=== PATIENT | female | born 1945 | race Caucasian/White ===

== ENCOUNTER 2018-10-01 10:27 | Inpatient (IN) | payer OTHER ==
[~2018-10-01] VITALS: Ht 149.9 cm; Wt 75.6 kg
[2018-10-01 10:33] VITALS: BP 179/80
[2018-10-01] MEDS ORDERED: ZOCOR20 MG PO (10:39)
[2018-10-01 10:59] LABS: ABSOLUTE BASOPHILS 0.1 thou/uL (0.0-0.2); ABSOLUTE MONOCYTES 1.4 thou/uL (0.0-1.2); ABSOLUTE NEUTROPHILS 12.1 thou/uL (1.6-8.1); BASOPHILS 0.4 %; EOSINOPHILS 0.1 %; HEMATOCRIT 44.9 % (37.0-47.0); HEMOGLOBIN 15.1 gm/dL (12.0-15.0); LYMPHOCYTES 12.9 %; MCH 31.5 pg (26.0-34.0); MCHC 33.7 g/dL (28.0-37.0); MCV 93.5 fL (80.0-100.0); MONOCYTES 8.7 %; MPV 10.4 fl. (7.2-11.1); NUCLEATED RBCS 0 /100WBC; PLATELET COUNT* 275 thou/uL (150-400); POLYS 77.9 %; RDW-CV 12.5 % (10.5-14.5); WBC 15.5 thou/uL (4.0-11.0)
[2018-10-01 11:15] LABS: ALBUMIN 3.3 g/dL (3.4-5.0); ALKALINE PHOSPHATASE 56 U/L (46-116); ANION GAP 10 mmol/L (7-16); BUN 15 mg/dL (7-18); CALCIUM 9.1 mg/dL (8.5-10.1); CHLORIDE 100 mmol/L (98-107); CO2 26 mmol/L (21-32); CREATININE 1.7 mg/dL (0.6-1.3); GLUCOSE 151 mg/dL (70-99); LIPASE 175 U/L (73-393); POTASSIUM 4.3 mmol/L (3.5-5.1); SGOT 14 U/L (15-37); SGPT 26 U/L (30-65); SODIUM 136 mmol/L (136-145); TOTAL BILIRUBIN 0.8 mg/dL (<0.1-1.0); TOTAL PROTEIN 7.6 g/dL (6.4-8.2); TROPONIN-I LEVEL <0.06 ng/mL (<0.06)
[2018-10-01 13:11] LABS: URINE BLOOD 3+ (Negative); URINE CLARITY CLEAR; URINE COLOR DARK YELLOW; URINE GLUCOSE-RANDOM NEGATIVE (Negative); URINE KETONES TRACE (Negative); URINE LEUKOCYTES-REFLEX TRACE (Negative); URINE NITRITE-REFLEX NEGATIVE (Negative); URINE PROTEIN 2+ (Negative); URINE SPECIFIC GRAVITY >= 1.030 (1.005-1.030)
[2018-10-01 13:13] LABS: ICTOTEST (BILI CONFIRMATORY) Negative (Negative); URINE BILIRUBIN 2+ (Negative)
[2018-10-01 13:19] LABS: BACTERIA-REFLEX 1-9 Few /HPF (None Seen); CASTS None Seen /LPF (None Seen); MUCUS 4-6 Moderate strn/LPF (None Seen); SQUAMOUS 0-3 Few /LPF (0-3); URINE RBC 3-10 Few /HPF (0-2); URINE WBC-REFLEX 6-15 Few /HPF (0-5)
[2018-10-01 13:20] LABS: CRYSTALS None Seen /LPF (None Seen)
[2018-10-01 14:45] VITALS: BP 186/59
[2018-10-01 14:48] VITALS: BP 128/76
[2018-10-01 17:00] VITALS: BP 155/42
[2018-10-01 20:00] VITALS: BP 172/53
[2018-10-02] VITALS: BP 160/52
--- NOTE | 2018-10-02 03:32 | NUR ---
RECIEVED REPORT AND ASSUMED CARE AT 1900. 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 DISTOLIC BP ELEVATED, OTHER THAN THAT VITAL SIGNS STABLE. PT IS UP ADLIB. PT HAS PAIN IN LOWER BACK AND ABD AND PRN PAIN MEDS GIVEN ORDERED. ASSESSMENT COMPLETED AND DISCUSSED PLAN OF CARE, PT UNDERSTANDS. BED LOCKED AND CALL LIGHT WITHIN REACH. FALL PRECAUTIONS IN PLACE. HOURLY ROUNDING DONE AND ALL NEEDS MET. NURSING WILL CONTINUE TO MONITOR.
[2018-10-02 04:00] VITALS: BP 173/63
[2018-10-02 05:00] LABS: ABSOLUTE BASOPHILS 0.1 thou/uL (0.0-0.2); ABSOLUTE EOSINOPHILS 0.1 thou/uL (0.0-0.7); ABSOLUTE LYMPHOCYTES 2.3 thou/uL (0.8-5.3); ABSOLUTE MONOCYTES 0.8 thou/uL (0.0-1.2); BASOPHILS 0.7 %; EOSINOPHILS 1.7 %; HEMATOCRIT 35.8 % (37.0-47.0); LYMPHOCYTES 27.3 %; MCH 32.2 pg (26.0-34.0); MCV 94.8 fL (80.0-100.0); MONOCYTES 10.2 %; MPV 10.3 fl. (7.2-11.1); NUCLEATED RBCS 0 /100WBC; PLATELET COUNT* 221 thou/uL (150-400); POLYS 60.1 %; RBC 3.77 mil/uL (4.20-5.00); RDW-CV 12.6 % (10.5-14.5); WBC 8.3 thou/uL (4.0-11.0)
[2018-10-02 05:03] LABS: CALCIUM 8.3 mg/dL (8.5-10.1); CREATININE 1.1 mg/dL (0.6-1.3); MAGNESIUM 1.9 mg/dL (1.8-2.4); PHOSPHORUS* 2.8 mg/dL (2.5-4.9)
[2018-10-02 05:25] LABS: HEMOGLOBIN 12.2 gm/dL (12.0-15.0)
[2018-10-02 07:44] VITALS: BP 152/54
[2018-10-02 12:00] VITALS: BP 181/70
[2018-10-02 16:00] VITALS: BP 147/63
--- NOTE | 2018-10-02 17:43 | EKG ---
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
--- NOTE | 2018-10-02 18:37 | NUR ---
PT TRANSITIONED TO MED/SURG STATUS THIS SHIFT. PT TOLERATING RA AND BEING UP AD KILLIAN AT THIS TIME WITH PAIN WELL CONTROLLED ON PAIN MEDICATIONS. PT TOLERATING DIET THSI SHIFT. WILL CONTINUE TO MONITOR AND ASSESS
[2018-10-02 20:30] VITALS: BP 155/51
[2018-10-03 04:00] VITALS: BP 178/44
[2018-10-03 04:36] LABS: ABSOLUTE BASOPHILS 0.1 thou/uL (0.0-0.2); ABSOLUTE EOSINOPHILS 0.2 thou/uL (0.0-0.7); ABSOLUTE LYMPHOCYTES 2.7 thou/uL (0.8-5.3); ABSOLUTE MONOCYTES 0.8 thou/uL (0.0-1.2); ABSOLUTE NEUTROPHILS 4.4 thou/uL (1.6-8.1); BASOPHILS 1.3 %; EOSINOPHILS 2.4 %; HEMATOCRIT 36.5 % (37.0-47.0); HEMOGLOBIN 12.5 gm/dL (12.0-15.0); LYMPHOCYTES 32.5 %; MCH 32.1 pg (26.0-34.0); MCHC 34.1 g/dL (28.0-37.0); MONOCYTES 10.3 %; MPV 10.2 fl. (7.2-11.1); NUCLEATED RBCS 0 /100WBC; PLATELET COUNT* 246 thou/uL (150-400); POLYS 53.5 %; RBC 3.88 mil/uL (4.20-5.00); RDW-CV 12.7 % (10.5-14.5); WBC 8.2 thou/uL (4.0-11.0)
[2018-10-03 04:51] LABS: CALCIUM 8.7 mg/dL (8.5-10.1); POTASSIUM 3.7 mmol/L (3.5-5.1)
--- NOTE | 2018-10-03 05:10 | NUR ---
PT CARE ASSUMED AT 1930. SAT MAINTAINED IN RA. CALL LIGHT WITHIN REACH AND BED IN LOW POSITION. ALERT AND ORIENTED X4. DENIES PAIN AND SOB. HOURLY ROUNDING DONE FOR PT SAFETY.
[2018-10-03 08:00] VITALS: BP 187/64
[2018-10-03 10:00] VITALS: BP 150/49
--- NOTE | 2018-10-03 10:21 | NUR ---
PT A/O. MED SURG STATUS. BP ELEVATED THIS AM-MEDICATED PER EMAR. VITALS OTHERWISE STABLE ON ROOM AIR. DENIES CP, SOA. LOOKING FORWARD TO POSSIBLE DC LATER TODAY. EDUCATED ON SAFETY AND PLAN OF CARE. PLEASE SEE ASSESSMENT FOR ADDITIONAL INFORMATION. WILL CONTINUE TO MONITOR
--- NOTE | 2018-10-03 12:15 | NUR ---
MET WITH PT TO DISCUSS HOME SITUATION/DC PLANNING. PT LIVES ALONE. IS INDEPENDENT AND ACTIVE. SHE USES NO EQUIPMENT, DOENS'T DRIVE BUT STATES FRIENDS ASSIST WITH TRANSPORTATION. PT DENIES DC NEEDS AND HOPES TO GO HOME SOON.
[2018-10-03 13:00] VITALS: BP 146/54
[2018-10-03 16:23] VITALS: BP 139/44
[2018-10-03 20:10] VITALS: BP 155/48
--- NOTE | 2018-10-04 05:02 | NUR ---
PT CARE ASSUMED AT 1930. SAT MAINTAINED RA. ALERT AND ORIENTED X4. CALL LIGHT WITHIN REACH AND BED IN LOW POSITION. DENIES PAIN AND SOB. HOURLY ROUNDING DONE FOR PT SAFTEY.
[2018-10-04 07:50] VITALS: BP 176/64
[2018-10-04] MEDS ORDERED: PRINIVIL20 MG PO (11:20)
[2018-10-04] MEDS ORDERED: KEFLEX500 M1 PO (11:20)
[2018-10-04] MEDS ORDERED: NORVASC10 MG PO (11:20)
[2018-10-04 11:30] VITALS: BP 151/42
[2018-10-04] MEDS ORDERED: TYLENOL325 MG PO (11:52)
[2018-10-04 11:53] VITALS: BP 176/64
--- NOTE | 2018-10-04 12:56 | NUR ---
PT GIVEN DISCHARGE INFORMATION, CARE NOTES, AND PRESCRIPTIONS. IV REMOVED. PT BELONGINGS GATHERED. PT LEFT VIA WHEELCHAIR WITH TRANSPORTERS TO HOME. FALL RISK PRECAUTIONS IN PLACE. HOURLY ROUNDING COMPLETED.
[2018-10-04 13:10] VITALS: BP 176/64
== END 2018-10-04 13:11 | disposition home or self-care (01) | DRG 871 ==
LOC: M.ERS 10:27 → M.2W 13:32 → M.TBA-ER 13:32 → M.2W 14:49
PROVIDERS: Physician Assistant; ADMIT Family Medicine
DX: A41.9 Sepsis, unspecified organism (principal); N17.0 Acute kidney failure with tubular necrosis; N12 Tubulo-interstitial nephritis, not specified as acute or chronic; F17.210 Nicotine dependence, cigarettes, uncomplicated; I12.9 Hypertensive chronic kidney disease with stage 1 through stage 4 chronic kidney disease, or unspecified chronic kidney disease; N18.9 Chronic kidney disease, unspecified; I25.10 Atherosclerotic heart disease of native coronary artery without angina pectoris; E78.5 Hyperlipidemia, unspecified; Z90.710 Acquired absence of both cervix and uterus; I25.2 Old myocardial infarction; Z90.49 Acquired absence of other specified parts of digestive tract; Z82.49 Family history of ischemic heart disease and other diseases of the circulatory system; Z79.82 Long term (current) use of aspirin; Z79.899 Other long term (current) drug therapy

== ENCOUNTER 2018-12-19 15:29 | Emergency (ER) | payer OTHER ==
[~2018-12-19] VITALS: Ht 149.9 cm; Wt 74.8 kg
[~2018-12-19 15:29] MED LIST: KEFLEX500 M1 PO; NORVASC10 MG PO; PRINIVIL20 MG PO; TYLENOL325 MG PO; ZOCOR20 MG PO
[2018-12-19] MEDS ORDERED: VITAMIN D-32000 UNIT PO (15:41)
[2018-12-19] MEDS ORDERED: FISH OIL 1,001000 M2 PO (15:41)
[2018-12-19] MEDS ORDERED: ASPIR 8181 MG PO (15:41)
[2018-12-19 16:44] LABS: ABSOLUTE BASOPHILS 0.1 thou/uL (0.0-0.2); ABSOLUTE EOSINOPHILS 0.2 thou/uL (0.0-0.7); ABSOLUTE LYMPHOCYTES 2.9 thou/uL (0.8-5.3); ABSOLUTE MONOCYTES 0.8 thou/uL (0.0-1.2); BASOPHILS 1.3 %; EOSINOPHILS 1.8 %; HEMATOCRIT 43.7 % (37.0-47.0); HEMOGLOBIN 15.1 gm/dL (12.0-15.0); LYMPHOCYTES 28.8 %; MCH 31.7 pg (26.0-34.0); MCHC 34.5 g/dL (28.0-37.0); MCV 91.8 fL (80.0-100.0); MONOCYTES 8.4 %; MPV 8.4 fl. (7.2-11.1); NUCLEATED RBCS 0 /100WBC; PLATELET COUNT* 431 thou/uL (150-400); POLYS 59.7 %; RBC 4.76 mil/uL (4.20-5.00); RDW-CV 12.5 % (10.5-14.5); WBC 10.1 thou/uL (4.0-11.0)
[2018-12-19 16:48] LABS: ANION GAP 9 mmol/L (7-16); BUN 13 mg/dL (7-18); CALCIUM 9.7 mg/dL (8.5-10.1); CHLORIDE 98 mmol/L (98-107); CO2 27 mmol/L (21-32); CREATININE 0.8 mg/dL (0.6-1.3); GLUCOSE 117 mg/dL (70-99); POTASSIUM 4.5 mmol/L (3.5-5.1); SODIUM 134 mmol/L (136-145)
[2018-12-19 16:51] LABS: URINE BILIRUBIN NEGATIVE (Negative); URINE BLOOD 3+ (Negative); URINE CLARITY CLEAR; URINE COLOR YELLOW; URINE GLUCOSE-RANDOM NEGATIVE (Negative); URINE KETONES NEGATIVE (Negative); URINE LEUKOCYTES-REFLEX 1+ (Negative); URINE NITRITE-REFLEX NEGATIVE (Negative); URINE PROTEIN TRACE (Negative)
[2018-12-19 16:58] LABS: ALKALINE PHOSPHATASE 66 U/L (46-116); SGOT 19 U/L (15-37); SGPT 31 U/L (30-65); TOTAL BILIRUBIN 0.5 mg/dL (<0.1-1.0); TOTAL PROTEIN 7.4 g/dL (6.4-8.2); TROPONIN-I LEVEL <0.06 ng/mL (<0.06)
[2018-12-19 16:58] LABS: SQUAMOUS 0-3 Few /LPF (0-3)
[2018-12-19 16:59] LABS: CRYSTALS None Seen /LPF (None Seen); MUCUS 4-6 Moderate strn/LPF (None Seen); URINE RBC >20 Many /HPF (0-2)
[2018-12-19 17:00] LABS: HYALINE CASTS 0-3 Few /LPF (None Seen); URINE WBC-REFLEX 0-5 Rare /HPF (0-5)
[2018-12-19 17:01] LABS: BACTERIA-REFLEX 1-9 Few /HPF (None Seen)
[2018-12-19] MEDS ORDERED: NORCO 5-325 TA1 EAC1 PO (17:33)
[2018-12-19] MEDS ORDERED: KEFLEX500 M1 PO (17:33)
[2018-12-19 18:15] VITALS: BP 199/56
--- NOTE | 2018-12-20 15:38 | EKG ---
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
== END 2018-12-19 18:15 | disposition home or self-care (01) ==
LOC: M.ERS 15:29
PROVIDERS: Physician Assistant
DX: S22.070A Wedge compression fracture of T9-T10 vertebra, initial encounter for closed fracture (principal); N39.0 Urinary tract infection, site not specified; E78.5 Hyperlipidemia, unspecified; Z90.710 Acquired absence of both cervix and uterus; Z98.890 Other specified postprocedural states; Z90.49 Acquired absence of other specified parts of digestive tract; X58.XXXA Exposure to other specified factors, initial encounter; Y93.89 Activity, other specified; Y92.89 Other specified places as the place of occurrence of the external cause; Y99.8 Other external cause status